=== PATIENT | female | born 1970 | race Caucasian/White ===

== ENCOUNTER 2018-06-03 20:06 | Emergency (ER) | payer SELFPAY ==
[~2018-06-03] VITALS: Ht 162.6 cm; Wt 136.1 kg
[2018-06-03 20:20] VITALS: BP 128/89
[2018-06-03] MEDS ORDERED: Ammonia Inhalant 0.33mL 1 Amp INH ONE ×3 (21:00→21:05)
--- NOTE | 2018-06-03 21:40 | Diagnostic Imaging Report ---
EXAM: XR Left Elbow Complete, 3 or More Views CLINICAL HISTORY: PAIN TECHNIQUE: Frontal, lateral and oblique views of the left elbow. COMPARISON: No relevant prior studies available. FINDINGS: Bones/joints: No acute fracture. Degenerative or old traumatic type changes. Soft tissues: No radiodense foreign body. Other findings: Limited, no lateral projection. IMPRESSION: No apparent acute fracture.
--- NOTE | 2018-06-03 22:48 | Diagnostic Imaging Report ---
EXAM: CT Head Without Intravenous Contrast CLINICAL HISTORY: ALOC TECHNIQUE: Axial computed tomography images of the head/brain without intravenous contrast. CTDI is 70.38 mGy and DLP is 1439 mGy-cm. One or more of the following dose reduction techniques were used: automated exposure control, adjustment of the mA and/or kV according to patient size, use of iterative reconstruction technique. COMPARISON: No relevant prior studies available. FINDINGS: Brain: No hemorrhage. No edema. Ventricles: No ventriculomegaly. Bones/joints: No acute fracture. Soft tissues: Unremarkable. Sinuses: No acute sinusitis. Mastoid air cells: No mastoid effusion. IMPRESSION: No acute intracranial process.
[2018-06-03 23:37] LABS: BASOPHILS % (AUTO) 0.7 % (0.0-2.0); EOSINOPHILS % (AUTO) 0.5 % (0.0-3.0); HEMATOCRIT 37.2 % (37.0-47.0); HEMOGLOBIN 12.5 G/DL (12.0-16.0); LYMPHOCYTES % (AUTO) 14.2 % (20.0-45.0); MEAN CORPUSCULAR VOLUME 80 FL (80-99); NEUTROPHILS % (AUTO) 80.6 % (45.0-75.0); PLATELET COUNT 241 K/UL (150-450); RED BLOOD COUNT 4.64 M/UL (4.20-5.40); RED CELL DISTRIBUTION WIDTH 12.1 % (11.6-14.8)
--- NOTE | 2018-06-03 23:41 | Emergency Room Report ---
History of Present Illness General Chief Complaint: Medical Clearance Source: EMS (BANDAR LARA) Present Illness HPI The patient is a 48-year-old female in custody presenting for medical clearance. The patient is being uncooperative at this time and does not provide any history at all. The police officers who are accompanying her state that the patient was caught stealing at a department store and was being aggressive. In the process of arresting the patient, she was taken down and complains of left elbow pain. She does not provide information at this point (BANDAR LARA P.AReece) Allergies: Coded Allergies: No Known Allergies (Unverified , 06/03/18) Patient History Limited by: other - Pt uncooperative Past Medical History: see triage record Reviewed Nursing Documentation: PMH: Agreed; PSxH: Agreed (BANDAR LARA) Nursing Documentation-PMH Past Medical History: No History, Except For Hx Hypertension: Yes - takes unknown meds,also hyperthyroidsm (BANDAR LARA) Review of Systems All Other Systems: limited (BANDAR LARA P.A.) Physical Exam Vital Signs Date Time Temp Pulse Resp B/P (MAP) Pulse Ox O2 Delivery O2 Flow Rate FiO2 06/03/18 20:12 98.1 102 18 128/89 95 Room Air Sp02 EP Interpretation: reviewed, normal General Appearance: no apparent distress, GCS 15, non-toxic, lethargic, obese Head: normocephalic, atraumatic Eyes: bilateral eye normal inspection, bilateral eye PERRL, bilateral eye EOMI Neck: full range of motion, supple/symm/no masses Respiratory: chest non-tender, lungs clear, normal breath sounds, speaking full sentences Cardiovascular #1: regular rate, rhythm, no edema Gastrointestinal: normal bowel sounds, non tender, soft, non-distended, no guarding, no rebound Musculoskeletal: back normal, gait/station normal, normal range of motion, tender - L elbow Neurologic: sensory intact, other - uncooperative. Does not respond Skin: normal color, no rash, warm/dry, well hydrated (BANDAR LARA PReeceAReece) Medical Decision Making PA Attestation Dr. Rosado is my supervising physician. Patient management was discussed with my supervising physician (TERBANDAR CHI Diagnostic Impression: Primary Impression: Contusion of elbow, left Qualified Codes: S50.02XA - Contusion of left elbow, initial encounter Additional Impression: Conversion reaction ER Course The patient is a 48-year-old female in custody presenting for medical clearance. She was complaining of left elbow pain Ddx considered include but not limited to sprain/strain, fracture, contusion Physical exam: Vitals remained stable Patient is uncooperative. Lethargic. Head is normocephalic atraumatic PERRL RRR Lungs CTA bilat TTP over the L olecranon. No deformity. The patient was not cooperating at all. Ammonia was ordered in order to determine if patient may be malingering. She awakened immediately after exposure and then became lethargic and close her eyes again. As precaution, further testing is done at this time. CT scan of head is unremarkable Labs are currently pending. I will be signing out this case to Dr. Andrews. Laboratory Tests Test 06/03/18 22:20 06/03/18 23:15 Urine Color Pending Urine Appearance Pending Urine pH Pending Urine Specific [place] Pending Urine Protein Pending Urine Glucose (UA) Pending Urine Ketones Pending Urine Blood Pending Urine Nitrite Pending Urine Bilirubin Pending Urine Urobilinogen Pending Urine Leukocyte Esterase Pending Urine Opiates Screen Negative (NEGATIVE) Urine Barbiturates Screen Negative (NEGATIVE) Phencyclidine (PCP) Screen Negative (NEGATIVE) Urine Amphetamines Screen Negative (NEGATIVE) Urine Benzodiazepines Screen Negative (NEGATIVE) Urine Cocaine Screen Negative (NEGATIVE) Urine Marijuana (THC) Screen Negative (NEGATIVE) White Blood Count 12.0 K/UL (4.8-10.8) H Red Blood Count 4.64 M/UL (4.20-5.40) Hemoglobin 12.5 G/DL (12.0-16.0) Hematocrit 37.2 % (37.0-47.0) Mean Corpuscular Volume 80 FL (80-99) Mean Corpuscular Hemoglobin 26.9 PG (27.0-31.0) L Mean Corpuscular Hemoglobin Concent 33.6 G/DL (32.0-36.0) Red Cell Distribution Width 12.1 % (11.6-14.8) Platelet Count 241 K/UL (150-450) Mean Platelet Volume 5.8 FL (6.5-10.1) L Neutrophils (%) (Auto) 80.6 % (45.0-75.0) H Lymphocytes (%) (Auto) 14.2 % (20.0-45.0) L Monocytes (%) (Auto) 4.0 % (1.0-10.0) Eosinophils (%) (Auto) 0.5 % (0.0-3.0) Basophils (%) (Auto) 0.7 % (0.0-2.0) Sodium Level 137 MMOL/L (136-145) Potassium Level 3.3 MMOL/L (3.5-5.1) L Chloride Level 105 MMOL/L (98-107) Carbon Dioxide Level 22 MMOL/L (21-32) Anion Gap 10 mmol/L (5-15) Blood Urea Nitrogen 12 mg/dL (7-18) Creatinine 0.8 MG/DL (0.55-1.30) Estimate Glomerular Filtration Rate > 60 mL/min (>60) Glucose Level 119 MG/DL (74-106) H Calcium Level 8.3 MG/DL (8.5-10.1) L Total Bilirubin Pending Aspartate Amino Transferase (AST) Pending Alanine Aminotransferase (ALT) Pending Alkaline Phosphatase Pending Total Protein Pending Albumin Pending Globulin Pending Thyroid Stimulating Hormone (TSH) Pending Free Thyroxine Pending Salicylates Level Pending Acetaminophen Level Pending Serum Alcohol Pending Lab Results Impression Pending. Signed out to Dr. Andrews (BANDAR [email or web address]) ER Course Please see above note. CT and labs reviewed. WBC slightly elevated. TSH also slightly high with normal T4. UA with protein and casts, no pyuria. Potassium slightly low. CT unremarkable. Patient examined. Fluttering eyelids and prevents dropped hand from hitting face. Will not follow commands but seems to hear. Exam consistent with psychogenic cause. Discussed with [employer] officers who will take to book and observe with low threshold for observation in [facility] if necessary. Medically stable for booking. Laboratory Tests Test 06/03/18 22:20 06/03/18 23:15 Urine Color Yellow Urine Appearance Slightly cloudy Urine pH 6 (4.5-8.0) Urine Specific [place] 1.025 (1.005-1.035) Urine Protein 3+ (NEGATIVE) H Urine Glucose (UA) Negative (NEGATIVE) Urine Ketones 1+ (NEGATIVE) H Urine Blood 3+ (NEGATIVE) H Urine Nitrite Negative (NEGATIVE) Urine Bilirubin Negative (NEGATIVE) Urine Urobilinogen Normal MG/DL (0.0-1.0) Urine Leukocyte Esterase 1+ (NEGATIVE) H Urine RBC 0-2 /HPF (0 - 2) Urine WBC 2-4 /HPF (0 - 2) Urine Squamous Epithelial Cells Few /LPF (NONE/OCC) Urine Bacteria Few /HPF (NONE) Urine Hyaline Casts 0-2 /LPF (NONE) H Urine Fine Granular Casts 5-10 /LPF (NONE) H Urine Coarse Granular Casts 0-2 /LPF (NONE) H Urine Opiates Screen Negative (NEGATIVE) Urine Barbiturates Screen Negative (NEGATIVE) Phencyclidine (PCP) Screen Negative (NEGATIVE) Urine Amphetamines Screen Negative (NEGATIVE) Urine Benzodiazepines Screen Negative (NEGATIVE) Urine Cocaine Screen Negative (NEGATIVE) Urine Marijuana (THC) Screen Negative (NEGATIVE) White Blood Count 12.0 K/UL (4.8-10.8) H Red Blood Count 4.64 M/UL (4.20-5.40) Hemoglobin 12.5 G/DL (12.0-16.0) Hematocrit 37.2 % (37.0-47.0) Mean Corpuscular Volume 80 FL (80-99) Mean Corpuscular Hemoglobin 26.9 PG (27.0-31.0) L Mean Corpuscular Hemoglobin Concent 33.6 G/DL (32.0-36.0) Red Cell Distribution Width 12.1 % (11.6-14.8) Platelet Count 241 K/UL (150-450) Mean Platelet Volume 5.8 FL (6.5-10.1) L Neutrophils (%) (Auto) 80.6 % (45.0-75.0) H Lymphocytes (%) (Auto) 14.2 % (20.0-45.0) L Monocytes (%) (Auto) 4.0 % (1.0-10.0) Eosinophils (%) (Auto) 0.5 % (0.0-3.0) Basophils (%) (Auto) 0.7 % (0.0-2.0) Sodium Level 137 MMOL/L (136-145) Potassium Level 3.3 MMOL/L (3.5-5.1) L Chloride Level 105 MMOL/L (98-107) Carbon Dioxide Level 22 MMOL/L (21-32) Anion Gap 10 mmol/L (5-15) Blood Urea Nitrogen 12 mg/dL (7-18) Creatinine 0.8 MG/DL (0.55-1.30) Estimate Glomerular Filtration Rate > 60 mL/min (>60) Glucose Level 119 MG/DL (74-106) H Calcium Level 8.3 MG/DL (8.5-10.1) L Total Bilirubin 0.4 MG/DL (0.2-1.0) Aspartate Amino Transferase (AST) 22 U/L (15-37) Alanine Aminotransferase (ALT) 19 U/L (12-78) Alkaline Phosphatase 79 U/L (46-116) Total Protein 7.0 G/DL (6.4-8.2) Albumin 3.2 G/DL (3.4-5.0) L Globulin 3.8 g/dL Albumin/Globulin Ratio 0.8 (1.0-2.7) L Thyroid Stimulating Hormone (TSH) 4.182 uiU/mL (0.358-3.740) Free Thyroxine 1.14 NG/DL (0.76-1.46) Salicylates Level 0.7 ug/mL (2.8-20) L Acetaminophen Level < 2 MCG/ML (10-30) L Serum Alcohol < 3 mg/dL (Marcus Andrews MD) Other X-Ray Diagnostic Results Other X-Ray Diagnostic Results : Electronically Signed by: PA xray documentation reviewed by me and is accurate, Marcus Andrews MD. (Marcus Andrews MD) CT/MRI/US Diagnostic Results CT/MRI/US Diagnostic Results : Imaging Test Ordered: CT head Impression unremarkable (BANDAR LARA P.A.) CT/MRI/US Diagnostic Results : Imaging Test Ordered: head (Marcus Anderws MD) Last Vital Signs Date Time Temp Pulse Resp B/P (MAP) Pulse Ox O2 Delivery O2 Flow Rate FiO2 06/03/18 20:20 102 18 Room Air 06/03/18 20:20 98.1 128/89 95 Status: improved (BANDAR LARA P.A.) Last Vital Signs Date Time Temp Pulse Resp B/P (MAP) Pulse Ox O2 Delivery O2 Flow Rate FiO2 06/04/18 00:10 98.1 18 128/89 95 Room Air 06/03/18 20:20 102 Status: unchanged (Marcus Andrews MD) Disposition: D/C TO LAW ENFORCEMENT IN CUST Condition: Stable Signed Out To: Dr. Andrews (BANDAR LARA P.AReece) Patient Instructions: Contusion BANDAR LARA Jun 03, 2018 23:41 Marcus Andrews MD Jun 04, 2018 00:02
[2018-06-03 23:43] LABS: ANION GAP 10 mmol/L (5-15); BLOOD UREA NITROGEN 12 mg/dL (7-18); CALCIUM 8.3 MG/DL (8.5-10.1); CARBON DIOXIDE 22 MMOL/L (21-32); CHLORIDE 105 MMOL/L (98-107); CREATININE 0.8 MG/DL (0.55-1.30); POTASSIUM 3.3 MMOL/L (3.5-5.1); SODIUM 137 MMOL/L (136-145)
[2018-06-03 23:49] LABS: APPEARANCE,URINE SLIGHTLY CLOUDY; BILIRUBIN, URINE NEGATIVE (NEGATIVE); GLUCOSE, URINE (UA) NEGATIVE (NEGATIVE); KETONES,URINE 1+ (NEGATIVE); LEUKOCYTE ESTERASE ,URINE 1+ (NEGATIVE); NITRITE,URINE NEGATIVE (NEGATIVE); PH,URINE 6 (4.5-8.0); PROTEIN,URINE 3+ (NEGATIVE); UROBILINOGEN,URINE NORMAL MG/DL (0.0-1.0)
[2018-06-03 23:55] LABS: COLOR,URINE YELLOW
[2018-06-03 23:56] LABS: ALANINE AMINOTRANSFERASE 19 U/L (12-78); ALBUMIN 3.2 G/DL (3.4-5.0); ALBUMIN/GLOBULIN RATIO 0.8 (1.0-2.7); ALKALINE PHOSPHATASE 79 U/L (46-116); ASPARTATE AMINO TRANSFERASE 22 U/L (15-37); BILIRUBIN,TOTAL 0.4 MG/DL (0.2-1.0)
[2018-06-04 00:10] VITALS: BP 128/89
== END 2018-06-04 00:10 ==
LOC: EDBD 20:06 → EMR 20:38
DX: S50.02XA Contusion of left elbow, initial encounter (principal); F44.9 Dissociative and conversion disorder, unspecified; E66.9 Obesity, unspecified; X58.XXXA Exposure to other specified factors, initial encounter; Y92.9 Unspecified place or not applicable; I10 Essential (primary) hypertension; Z68.43 Body mass index [BMI] 50.0-59.9, adult
CPT/HCPCS: 36415; 70450; 73080; 80053; 80307; 81003; 84439; 84443; 85025; 99284; G0480; 80329